=== PATIENT | male | born 1960 | race Caucasian/White ===

== ENCOUNTER 2017-01-23 21:56 | Inpatient (IN) ==
[2017-01-23] MEDS ORDERED: ALUM/MAG/SIMETH/LIDO VISC 1:1 30 ML BOTTLE PO STA (22:49)
[2017-01-23] MEDS ORDERED: ONDANSETRON 4 MG/2 ML VIAL IV STA (22:49)
[2017-01-23] MEDS ORDERED: MORPHINE 2 MG/1 ML SYRINGE IV STA (22:49)
[2017-01-23] MEDS ORDERED: NITROGLYCERIN 2% OINT 1 INCH/GM PACK TOP STA (22:49)
[2017-01-23] MEDS ORDERED: ASPIRIN 325 MG TABLET PO STA (22:49)
[2017-01-23 22:55] LABS: Basophils % 0.1 % (0.0-0.8); Eosinophils # 0.2 10*3/uL (0.0-0.87); Eosinophils % 2.9 % (0.00-10.9); Hematocrit 37.8 VOL% (42.0-52.0); Hemoglobin 13.9 GM/DL (14.0-18.0); Immature Granulocytes % 0.4 %; Immature Granulocytes Absolute 0.03 #; Lymphocytes # 2.4 10*3/uL (1.4-4.0); Lymphocytes % 29.6 % (21.2-54.2); Mean Corpuscular HGB Conc 36.8 GM/DL (32-36); Mean Corpuscular Hemoglobin 31 PG (27-34); Mean Corpuscular Volume 83.1 FL (87-102); Mean Platelet Volume 11.3 FL (9.6-12.0); Monocytes # 0.7 10*3/uL (0.11-0.8); Monocytes % 9.2 % (1.7-12.7); Neutrophils # 4.6 10*3/uL (1.4-7.4); Neutrophils % 57.8 % (38.7-73.9); Platelet Count 129 T/CUMM (130-400); Red Blood Count 4.55 MC/CUMM (3.8-5.5); Red Cell Distribution Width 12.2 % (9.3-17.3)
--- NOTE | 2017-01-23 23:01 | Emergency Department Note ---
IMargo Emily, am scribing for, and in the presence of, Florentino Christiansen MD 23: 00. IKuldip Charles R, MD, personally performed the services described in this documentation, ascribed by Destiny Aragon in my presence, and it is both accurate and complete . Arrival - Arrival Chief Complaint: Chest Pain Stated Complaint: chest pain ED Nursing Triage Note: pt presentedt to triage ambulatory with c/o L CP that radiates to L arm. Nitro sl x 3 taken [employer]ATT[employer]IE[employer] with some relief of pain. Now rates pain /10. Hx of CABG noted Mode of Arrival: Ambulatory Limitations: No Limitations Source: Patient Time Seen by Provider: 01/23/17 22:42 - History of Present Illness HPI Narrative: Pt is a 56 y/o male who came to ED with c/o left sided chest pain that radiates down left arm which started a little after 9pm when woke up from sleep tonight. Pt reports taking nitro earlier that has helped to ease the sharp, aching pain. He takes aspirin daily as well. Pt was experiencing diaphoresis, mild nausea, numbness from heart to left arm/fingertips, and SOB. Pt describes pain now in ED as pressure, "someone sitting on his chest and squeezing." PMHx of cardiac bypass under supervision of Dr. Welsh with stent back in ; HTN , HLD. He reports having chest pain periodically since surgery but nothing like the sxs tonight. Pt denies smoking. FMHx mom and dad with massive MIs. Onset (ago): hour(s) Consistency: constant Severity: moderate Severity scale (1-10): 6 Quality: aching, sharp Allergies/Adverse Reactions: Allergies Allergy/AdvReac Type Severity Reaction Status Date / Time No Known Allergies Allergy Verified 09/22/15 18:31 Home Medications: Home Medications Medication Instructions Recorded Confirmed Type Centrum Ultra Men's Tablet 1 tablet PO DAILY 11/18/14 09/22/15 History Clopidogrel 75 mg PO DAILY 11/18/14 09/22/15 History Lisinopril 40 mg PO DAILY 11/18/14 09/22/15 History Pramipexole 0.25 mg PO BEDTIME 11/18/14 09/22/15 History Simvastatin 40 mg PO BEDTIME 11/18/14 09/22/15 History Aspirin EC Tab 81 mg PO DAILY #30 tablet 11/19/14 09/22/15 Rx Pantoprazole Tab [Protonix Tab] 40 mg PO BID #60 tablet 11/19/14 09/22/15 Rx traMADol TAB [Ultram] 50 mg PO TID PRN #30 tablet 03/02/15 09/22/15 Rx Esomeprazole Magnesium [Nexium] 1 tablet PO DAILY 09/22/15 09/22/15 History Review of System - Review of System 12 point system: reviewed and no additional remarkable complaints except as stated - Review of System Constitutional: Present: diaphoresis. Absent: fever Respiratory: Present: respiratory distress (SOB). Absent: cough, wheezing Cardiovascular: Present: chest pain (left sided; radiating), syncope. Absent: edema Gastrointestinal: Present: nausea (mild). Absent: abdominal pain, vomiting Musculoskeletal: Present: arm pain (left arm). Absent: neck pain Skin: Absent: rash Neurological: Present: numbness (left arm). Absent: headache, confusion Medical,Surgical,& Family Hx - Medical History Cardio: History of: CAD, Hypertension HEENT: History of: Ear Problem Endocrine: History of: Dyslipidemia Gastrointestinal: History of: GERD - Surgical History Cardiac Surgeries: Sugical HX of: Cardiac Catheterization (STENT X'S 1), Cardiac Surgery (CARDIAC BYPASS 2010) Thoracic Surgeries: Patient denies;: Organ Transplant, Lobectomy HEENT Surgeries: Patient denies: Eye Surgery, Tonsilectomy & Adenoidectomy Abdominal Surgeries: Surgical HX of: Abdominal Surgery, Cholecystectomy Reproductive Surgeries: Patient denies;: Genitourinary Surgery Orthopedic Surgeries: Surgical HX of;: Orthopedic Surgery (rotator cuffs, right and left) - Family History Family History: Reports;: Family Heart Disease (MOTHER AND FATHER HAD MASSIVE ID 'S) Denies;: Family Anesthesia Reaction - Social History Smoking Status: Former smoker Frequency of Alcohol Use: None Type of Drug Use: None Exam Vital Signs: Vital Signs Temperature 99.4 F 01/23/17 22:06 Pulse Rate 95 H 01/23/17 22:06 Respiratory Rate 18 01/23/17 22:06 Blood Pressure 142/82 01/23/17 22:06 O2 Sat by Pulse Oximetry 95 01/23/17 22:06 - General General appearance: alert, in no apparent distress - Head Head exam: Present: atraumatic, normocephalic - Eye Eye exam: Present: PERRL, EOMI - ENT ENT exam: Present: mucous membranes moist. Absent: mucous membranes dry - Neck Neck exam: Present: full ROM. Absent: tenderness - Chest Chest inspection: Present: symmetric chest wall rise. Absent: tenderness - Respiratory Respiratory exam: Present: normal lung sounds bilaterally. Absent: respiratory distress - Cardiovascular Cardiovascular exam: Present: regular rate, normal rhythm, normal heart sounds - Abdominal Exam Abdominal exam: Present: soft, normal bowel sounds. Absent: tenderness - Extremities Exam Extremities exam: Present: full ROM. Absent: tenderness, pedal edema - Neurological Exam Neurological exam: Present: alert, oriented X3, CN II-XII intact. Absent: motor sensory deficit - Psychiatric Psychiatric exam: Present: normal affect, normal mood - Skin Skin exam: Present: warm, dry Course - Consultations Consultation #1: Dr. Hamilton will admit patient Time: 01:11 Results - Labs CBC & BMP: 01/23/17 22:19 01/23/17 22:19 Lab Results: I have reviewed the patients labs Labs: Laboratory Tests 01/23/17 22:19 WBC 8.0 RBC 4.55 Hgb 13.9 L Hct 37.8 L MCV 83.1 L MCHC 36.8 H Plt Count 129 L Laboratory Tests 01/23/17 01/23/17 22:19 22:19 D-Dimer, Quantitative <= 0.5 Magnesium 1.8 Lipase 143.0 Laboratory Tests 01/23/17 22:19 Sodium 134 L Potassium 3.0 L Chloride 101 Carbon Dioxide 24 Creatinine 0.90 Glucose 124 H Calculated Osmolality 269.2 L Laboratory Tests 01/23/17 22:19 B-Natriuretic Peptide 11 Disposition Clinical Impression: Chest pain, Unstable angina Case discussed with: patient Disposition: Still a Patient Condition: Stable Time of Disposition: 01:33
[2017-01-23 23:08] LABS: PT Patient Result 11.1 SECS
[2017-01-23] MEDS ORDERED: NITROGLYCERIN 2% OINT 1 INCH/GM PACK TOP ONE (23:10)
[2017-01-23] MEDS ORDERED: ONDANSETRON 4 MG/2 ML VIAL ONE (23:10)
[2017-01-23] MEDS ORDERED: MORPHINE 2 MG/1 ML SYRINGE ONE (23:11)
[2017-01-23] MEDS ORDERED: ALUM/MAG/SIMETH/LIDO VISC 1:1 30 ML BOTTLE PO ONE (23:11)
[2017-01-23] MEDS ORDERED: ASPIRIN 325 MG TABLET ONE (23:11)
[2017-01-23 23:20] LABS: Magnesium 1.8 MG/DL (1.8-2.4)
[2017-01-23 23:23] LABS: Albumin 4.1 G/DL (3.4-5.0); Bilirubin,Total 0.6 MG/DL (0.2-1.0); Osmolality,Calculated 269.2 MOS/KG (273-304); Total Protein 7.1 G/DL (6.4-8.3)
[2017-01-23] MEDS ORDERED: POTASSIUM CHLORIDE 20 MEQ TABLET PO STA (23:48)
[2017-01-24] MEDS ORDERED: POTASSIUM CHLORIDE 20 MEQ TABLET PO ONE (02:13)
[2017-01-24] MEDS ORDERED: MORPHINE 2 MG/1 ML SYRINGE IV PRN (02:22)
[2017-01-24] MEDS ORDERED: MAGNESIUM SULF RIDER 2 GM in PREMIX 1 EACH IV PRN ×2 (02:22→09:36)
[2017-01-24] MEDS ORDERED: MAGNESIUM SULF RIDER 4 GM in PREMIX 1 EACH IV PRN (02:22)
[2017-01-24] MEDS ORDERED: ONDANSETRON 4 MG/2 ML VIAL IV PRN (02:22)
[2017-01-24] MEDS ORDERED: SODIUM CHLORIDE 0.9% 1,000 ML IV SCH ×2 (02:22→13:30)
[2017-01-24 05:28] LABS: Basophils % 0.1 % (0.0-0.8); Eosinophils # 0.3 10*3/uL (0.0-0.87); Eosinophils % 4.6 % (0.00-10.9); Hematocrit 38.8 VOL% (42.0-52.0); Immature Granulocytes % 0.4 %; Immature Granulocytes Absolute 0.03 #; Lymphocytes # 1.9 10*3/uL (1.4-4.0); Lymphocytes % 27.6 % (21.2-54.2); Mean Corpuscular HGB Conc 36.1 GM/DL (32-36); Mean Corpuscular Hemoglobin 30 PG (27-34); Mean Corpuscular Volume 83.8 FL (87-102); Mean Platelet Volume 11.4 FL (9.6-12.0); Monocytes # 0.7 10*3/uL (0.11-0.8); Monocytes % 9.5 % (1.7-12.7); Neutrophils % 57.8 % (38.7-73.9); Platelet Count 136 T/CUMM (130-400); Red Blood Count 4.63 MC/CUMM (3.8-5.5); Red Cell Distribution Width 12.4 % (9.3-17.3)
[2017-01-24 06:03] LABS: Albumin 3.9 G/DL (3.4-5.0); Bilirubin,Total 0.6 MG/DL (0.2-1.0); Calcium 8.8 MG/DL (8.5-10.1); Magnesium 2.3 MG/DL (1.8-2.4); Osmolality,Calculated 273.8 MOS/KG (273-304); Potassium 3.8 MMOL/L (3.5-5.1); Risk Ratio 4.87; Total Protein 6.8 G/DL (6.4-8.3)
--- NOTE | 2017-01-24 06:21 | EKG Report ---
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
--- NOTE | 2017-01-24 06:21 | EKG Report ---
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
[2017-01-24] MEDS: NITROGLYCERIN 2% OINT 1 INCH/GM PACK TOP SCH ×4 (06:22→19:05)
--- NOTE | 2017-01-24 06:22 | EKG Report ---
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
--- NOTE | 2017-01-24 08:10 | XRay Report ---
History is chest pain Comparison 09/22/2015 The heart is enlarged with prior median sternotomy No congestive failure or confluent infiltrate is seen. Extrapleural fat laterally is similar on prior studies Impression: Cardiomegaly without overt congestive failure PROCEDURE INTERPRETED AT [facility] DEPARTMENT OF RADIOLOGY Final Report Signed by: Dr. Le Alvarez
[2017-01-24] MEDS ORDERED: SIMVASTATIN 40 MG TABLET PO SCH (09:00)
[2017-01-24] MEDS ORDERED: ENOXAPARIN 100 MG/ML SYRINGE SUBCUT SCH (09:00)
--- NOTE | 2017-01-24 09:15 | XRay Report ---
Exam: XR chest 2V Indication: Cardiomegaly Shortness of breath Comparison study: 01/23/2017 chest radiograph Findings: Cardiac silhouette is enlarged, similar to prior. Median sternotomy wiring is noted. Lungs are predominantly clear with minimal perihilar interstitial opacities, not significant change from prior, likely representing atelectasis and or scarring. There is no pneumothorax or pleural effusion identified. Impression: Mild cardiomegaly with minimal central perihilar interstitial prominence may represent scarring changes or atelectasis. Otherwise, no active disease. PROCEDURE INTERPRETED AT [facility] DEPARTMENT OF RADIOLOGY Final Report Signed by: Kobi Grigsby
--- NOTE | 2017-01-24 09:16 | Cardiology History & Physical ---
<Mary Saucedo - Last Filed: 01/24/17 08:27> Assessment and Plan - Time spent with patient Time spent with patient: Greater than 30 minutes (1) Chest pain Status: Acute Assessment and plan: SEE PLAN OF CARE LISTED BELOW Current Visit: Yes (2) Former smoker Status: Chronic Assessment and plan: SEE PLAN OF CARE LISTED BELOW Current Visit: Yes (3) Family history of early CAD Status: Chronic Assessment and plan: SEE PLAN OF CARE LISTED BELOW Current Visit: Yes (4) Coronary artery disease Status: Chronic Assessment and plan: SEE PLAN OF CARE LISTED BELOW Current Visit: Yes (5) Dyslipidemia Status: Chronic Assessment and plan: SEE PLAN OF CARE LISTED BELOW Current Visit: Yes (6) Essential hypertension Status: Chronic Assessment and plan: SEE PLAN OF CARE LISTED BELOW Current Visit: Yes (7) Gastroesophageal reflux disease with esophagitis Status: Chronic Assessment and plan: SEE PLAN OF CARE LISTED BELOW Current Visit: No (8) Status post coronary artery bypass graft Status: Chronic Assessment and plan: SEE PLAN OF CARE LISTED BELOW Current Visit: No History of Present Illness Chief complaint: Chest pain History of present illness: Compounding Pharmacy Technician: Dr. Sang Welsh Mr. Flynn is a 56 year old male with a known history of coronary artery disease, routinely followed by Dr. Sang Welsh. Patient has cardiac risk factors significant for known CAD, hypertension, dyslipidemia, former smoker, obesity and family history of coronary artery disease (father had ME at age 53 and mother from CHF at age 67). Patient had CABG in 2010 with FREDERICK to LAD, SVG to diagonal and ROMI to PDA. Patient's most recent heart catheterization was performed in [address] Sang Welsh. At that time, FREDERICK to LAD and ROMI to PDA were patent without evidence of significant stenosis. The diagonal graft was noted to be completely occluded. This was an old finding. Normal left ventricular size and function noted with EF estimated to be in the 60% range. 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 Patient's last stress test was performed February 2015 which did not reveal an evidence suggestive of reversible ischemia or scar. Patient reports that he has upcoming stress test in February of this year. His last echocardiogram was performed September 2013 which revealed normal LV function with EF estimated at 55%. No regional wall motion abnormalities noted. He was last seen in the cardiology clinic July 2016. At that time, no changes were made in his medication regimen. Patient presented to [facility] emergency department early this morning with complaints of left-sided chest pain. He reports that his pain began yesterday evening around 9 PM. This pain woke him up from his sleep and was very severe. He rates his pain a 9 out of 10. He first describes his pain as a pounding, sharp pain. Which then transitioned into a pressure, squeezing type pain. Describes it as "someone sitting on his chest." This radiated down his left arm. Reports that his arm and fingertips became numb at one point. Associated with shortness of breath, diaphoresis and heart racing. Denies nausea, vomiting, orthopnea and lower extremity swelling. While at home, he took 2 nitroglycerin which did significantly help his pain. However, this did not completely resolve it. Was not worsened with exertion. Unable to identify any specific aggravating factors. Reports that he has been having chest pain on and off for several months. However, last night he was concerned as his pain was a lot more severe. Therefore, he presented to the emergency department for further evaluation. When asked how this pain compares to whenever he underwent CABG 2010. He reports that his pain is just a little bit different as it is more severe than when he required CABG in 2010. He was admitted under cardiology's service and housed the telemetry unit. Of note, patient reports that he remains very active. He can perform his usual activities without experiencing chest pain, heaviness or tightness. He reports just last week, while at work, he declined a ladder to a silo without expecting chest pain, heaviness or tightness. Denies dyspnea on exertion and easy fatigability. Patient was seen and examined on the telemetry unit. Patient is currently without chest pain, heaviness or tightness. EKG does not reveal any acute ST changes. Cardiac biomarkers have been negative 3. D-dimer negative. Chest x- ray reveals cardiomegaly without overt congestive heart failure. BNP 11. Patient's last echocardiogram was performed 2013 which revealed normal LV function with EF estimated at 55%. Dr. Welsh plans to perform echocardiogram at his next office visit in February. For this reason, we will not order echocardiogram this hospitalization. Patient does have a significant cardiac history. Received therapeutic dose of Lovenox and full dose aspirin in the emergency department. Continue nitrates. Resume patient's home medications of Plavix and aspirin. At this point, I will keep patient n.p.o. and further discuss with Dr. Hamilton regarding further cardiac workup, invasive versus noninvasive. Will await his additional recommendations. ASSESSMENT/PLAN 1. CHEST PAIN - Patient is now without chest pain, heaviness or tightness. Cardiac biomarkers have been negative 3 and EKG did not reveal any acute ST changes. Patient does have a significant cardiac history. Received therapeutic dose of Lovenox and full dose aspirin in the emergency department. Continue nitrates. Resume patient's home medications of Plavix and aspirin. At this point, I will keep patient n.p.o. and further discuss with Dr. Hamilton regarding further cardiac workup, invasive versus noninvasive. Will await his additional recommendations. 2. HISTORY OF CAD, STATUS POST CABG 2010 - Patient has history of CAD and is status post CABG 2010 with FREDERICK to LAD, ROMI to PDA and SVG to diagonal. Patient's last echocardiogram was performed 2013 which revealed normal LV function with EF estimated at 55%. Dr. Welsh plans to perform echocardiogram at his next office visit in February. For this reason, we will not order echocardiogram this hospitalization. 3. HYPERTENSION - Under well control. Patient's home medications continued. Continue current plan of care. Will monitor blood pressure and adjust medications accordingly. 4. HYPERLIPIDEMIA - Lipid panel reviewed. LDL-113. Given patient's history of significant CAD I will change patient's statin to high intensity statin in order to achieve LDL goal of less than 75 5. FORMER SMOKER - Patient reports that he quit smoking in 1988. 6. FAMILY HISTORY OF CAD - Patient has family history of CAD. Father had ME at age 53 mother from CHF at age 67. Home Medications Medication Instructions Recorded Confirmed Type Centrum Ultra Men's Tablet 1 tablet PO DAILY 11/18/14 09/22/15 History Clopidogrel 75 mg PO DAILY 11/18/14 09/22/15 History Lisinopril 40 mg PO DAILY 11/18/14 09/22/15 History Pramipexole 0.25 mg PO BEDTIME 11/18/14 09/22/15 History Simvastatin 40 mg PO BEDTIME 11/18/14 09/22/15 History Aspirin EC Tab 81 mg PO DAILY #30 tablet 11/19/14 09/22/15 Rx Pantoprazole Tab [Protonix Tab] 40 mg PO BID #60 tablet 11/19/14 09/22/15 Rx traMADol TAB [Ultram] 50 mg PO TID PRN #30 tablet 03/02/15 09/22/15 Rx Esomeprazole Magnesium [Nexium] 1 tablet PO DAILY 09/22/15 09/22/15 History Allergies Allergy/AdvReac Type Severity Reaction Status Date / Time No Known Allergies Allergy Verified 09/22/15 18:31 - Constitutional Constitutional: Present: malaise. Absent: chills, fever(s), frequent falls, weakness, weight gain, weight loss - Cardiovascular Cardiovascular: Present: as per HPI, chest pain at rest, diaphoresis, dyspnea, radiating jaw, neck or arm pain, palpitations. Absent: chest pain with activity , claudication, dyspnea on exertion, edema, lightheadedness, orthopnea, PND - Respiratory Respiratory: Present: dyspnea. Absent: cough, hemoptysis, dyspnea on exertion, wheezing, snoring, pain on inspiration, change in phlegm color - Gastrointestinal Gastrointestinal: Absent: abdominal pain, change in bowel habits, coffee ground emesis, hematemesis, hematochezia, loose stools, melena, nausea, vomiting - Neurological Neurological: Present: numbness. Absent: abnormal gait, abnormal speech, behavioral changes, dizziness, syncope Medical,Surgical,& Family Hx - Medical History Cardio: History of: CAD, Hypertension HEENT: History of: Ear Problem Endocrine: History of: Dyslipidemia Gastrointestinal: History of: GERD - Surgical History Cardiac Surgeries: Sugical HX of: Cardiac Catheterization (STENT X'S 1), Cardiac Surgery (CARDIAC BYPASS 2010) Thoracic Surgeries: Patient denies;: Organ Transplant, Lobectomy HEENT Surgeries: Patient denies: Eye Surgery, Tonsilectomy & Adenoidectomy Abdominal Surgeries: Surgical HX of: Abdominal Surgery, Cholecystectomy Reproductive Surgeries: Patient denies;: Genitourinary Surgery Orthopedic Surgeries: Surgical HX of;: Orthopedic Surgery (rotator cuffs, right and left) - Family History Family History: Reports;: Family Heart Disease (MOTHER AND FATHER HAD MASSIVE ME 'S) Denies;: Family Anesthesia Reaction - Social History Smoking Status: Former smoker Frequency of Alcohol Use: None Type of Drug Use: None Functional capacity: independent ambulation Cardiology Physical Exam - Constitutional Vitals: Vital Signs Temp Pulse Resp BP Pulse Ox 98 F 53 L 20 125/72 98 01/24/17 07:30 01/24/17 07:30 01/24/17 07:30 01/24/17 07:30 01/24/17 07:30 Intake and Output 01/23/17 01/24/17 01/24/17 22:59 06:59 14:59 Output Total 500 / 500 Balance -500 / -500 Output: Urine 500 / 500 Other: Voiding Method Urinal Weight 235 lb 222 lb 8 oz Exam: General: Appears well with no apparent distress. Pleasant and cooperative. Appears comfortable. HEENT: PERRL, normocephalic, atraumatic. Mucous membranes moist. No jaundice noted. Conjunctiva moist and clear, sclerae anicteric Neck: No JVD/HJR, no thyromegaly or lymphadenopathy noted. No carotid bruit appreciated Cardiac: Regular rate and rhythm. No murmur rub or gallop. Lungs: Clear to auscultation without accessory muscle use to assist the respiratory pattern. Not requiring oxygen. Abdomen: Soft, bowel sounds normoactive. Nontender and nondistended. No abdominal bruit or thrill noted. No masses noted. Extremities: No clubbing, cyanosis noted. No edema noted. Upper extremity pulses 2+. Lower extremity pulses 2+. Capillary refill less than 3 seconds. Skin: No unusual lesions or rashes. No skin breakdown appreciated. Neuro: Awake, alert and oriented 3. Moves all extremities well without hemiparesis or paralysis. No essential tremor is appreciated. Result/EKG - Labs CBC & BMP: 01/24/17 04:58 01/24/17 04:58 Lab Results: I have reviewed the past 24 hour labs Labs: Laboratory Results - last 24 hr 01/23/17 01/23/17 01/23/17 22:19 22:19 22:19 WBC RBC Hgb Hct MCV MCH MCHC RDW Plt Count MPV Neut % (Auto) Lymph % (Auto) [place] % (Auto) Eos % (Auto) Baso % (Auto) Neut # (Auto) Lymph # (Auto) [place] # (Auto) Eos # (Auto) Baso # (Auto) Immature Gran % Nucleated RBC % Immature Gran # Nucleated RBCs # INR PT Patient/Control Mix D-Dimer, Quantitative <= 0.5 Sodium 134 L Potassium 3.0 L Chloride 101 Carbon Dioxide 24 Anion Gap 12.0 BUN 14 Creatinine 0.90 GFR Calculation 119 BUN/Creatinine Ratio 15.00 Glucose 124 H Calculated Osmolality 269.2 L Calcium 9.0 Magnesium Total Bilirubin 0.60 AST 28 ALT 37 Alkaline Phosphatase 79 Troponin I B-Natriuretic Peptide 11 Total Protein 7.1 Albumin 4.1 Globulin 3.0 Albumin/Globulin Ratio 1.3 Triglycerides Cholesterol LDL Cholesterol VLDL Cholesterol HDL Cholesterol Heart Disease Risk Ratio Lipase TSH 3rd Generation 01/23/17 01/23/17 01/23/17 22:19 22:19 22:19 WBC 8.0 RBC 4.55 Hgb 13.9 L Hct 37.8 L MCV 83.1 L MCH 31 MCHC 36.8 H RDW 12.2 Plt Count 129 L MPV 11.3 Neut % (Auto) 57.8 Lymph % (Auto) 29.6 [place] % (Auto) 9.2 Eos % (Auto) 2.9 Baso % (Auto) 0.1 Neut # (Auto) 4.6 Lymph # (Auto) 2.4 [place] # (Auto) 0.7 Eos # (Auto) 0.2 Baso # (Auto) 0.0 Immature Gran % 0.4 Nucleated RBC % 0.0 Immature Gran # 0.03 Nucleated RBCs # 0.00 INR 1.0 PT Patient/Control Mix 11.1 D-Dimer, Quantitative Sodium Potassium Chloride Carbon Dioxide Anion Gap BUN Creatinine GFR Calculation BUN/Creatinine Ratio Glucose Calculated Osmolality Calcium Magnesium Total Bilirubin AST ALT Alkaline Phosphatase Troponin I < 0.015 B-Natriuretic Peptide Total Protein Albumin Globulin Albumin/Globulin Ratio Triglycerides Cholesterol LDL Cholesterol VLDL Cholesterol HDL Cholesterol Heart Disease Risk Ratio Lipase TSH 3rd Generation 01/23/17 01/24/17 01/24/17 22:19 02:36 04:58 WBC RBC Hgb Hct MCV MCH MCHC RDW Plt Count MPV Neut % (Auto) Lymph % (Auto) [place] % (Auto) Eos % (Auto) Baso % (Auto) Neut # (Auto) Lymph # (Auto) [place] # (Auto) Eos # (Auto) Baso # (Auto) Immature Gran % Nucleated RBC % Immature Gran # Nucleated RBCs # INR PT Patient/Control Mix D-Dimer, Quantitative Sodium Potassium Chloride Carbon Dioxide Anion Gap BUN Creatinine GFR Calculation BUN/Creatinine Ratio Glucose Calculated Osmolality Calcium Magnesium 1.8 Total Bilirubin AST ALT Alkaline Phosphatase Troponin I 0.019 0.020 B-Natriuretic Peptide Total Protein Albumin Globulin Albumin/Globulin Ratio Triglycerides Cholesterol LDL Cholesterol VLDL Cholesterol HDL Cholesterol Heart Disease Risk Ratio Lipase 143.0 TSH 3rd Generation 01/24/17 01/24/17 01/24/17 04:58 04:58 04:58 WBC 7.0 RBC 4.63 Hgb 14.0 Hct 38.8 L MCV 83.8 L MCH 30 MCHC 36.1 H RDW 12.4 Plt Count 136 MPV 11.4 Neut % (Auto) 57.8 Lymph % (Auto) 27.6 [place] % (Auto) 9.5 Eos % (Auto) 4.6 Baso % (Auto) 0.1 Neut # (Auto) 4.0 Lymph # (Auto) 1.9 [place] # (Auto) 0.7 Eos # (Auto) 0.3 Baso # (Auto) 0.0 Immature Gran % 0.4 Nucleated RBC % 0.0 Immature Gran # 0.03 Nucleated RBCs # 0.00 INR PT Patient/Control Mix D-Dimer, Quantitative Sodium 137 Potassium 3.8 Chloride 104 Carbon Dioxide 26 Anion Gap 10.8 BUN 15 Creatinine 0.70 GFR Calculation 129 BUN/Creatinine Ratio 21.00 H Glucose 95 Calculated Osmolality 273.8 Calcium 8.8 Magnesium 2.3 Total Bilirubin 0.60 AST 24 ALT 38 Alkaline Phosphatase 80 Troponin I B-Natriuretic Peptide 17 Total Protein 6.8 Albumin 3.9 Globulin 2.9 Albumin/Globulin Ratio 1.3 Triglycerides 115 Cholesterol 185 LDL Cholesterol 113.0 VLDL Cholesterol 23.0 HDL Cholesterol 38 L Heart Disease Risk Ratio 4.87 Lipase TSH 3rd Generation 01/24/17 04:58 WBC RBC Hgb Hct MCV MCH MCHC RDW Plt Count MPV Neut % (Auto) Lymph % (Auto) [place] % (Auto) Eos % (Auto) Baso % (Auto) Neut # (Auto) Lymph # (Auto) [place] # (Auto) Eos # (Auto) Baso # (Auto) Immature Gran % Nucleated RBC % Immature Gran # Nucleated RBCs # INR PT Patient/Control Mix D-Dimer, Quantitative Sodium Potassium Chloride Carbon Dioxide Anion Gap BUN Creatinine GFR Calculation BUN/Creatinine Ratio Glucose Calculated Osmolality Calcium Magnesium Total Bilirubin AST ALT Alkaline Phosphatase Troponin I B-Natriuretic Peptide Total Protein Albumin Globulin Albumin/Globulin Ratio Triglycerides Cholesterol LDL Cholesterol VLDL Cholesterol HDL Cholesterol Heart Disease Risk Ratio Lipase TSH 3rd Generation 3.860 H <Kain Hamilton - Last Filed: 01/24/17 10:28> History of Present Illness History of present illness: Mr. Flynn is a 56 year old male Cardiology Physical Exam - Constitutional Vitals: Vital Signs Temp Pulse Resp BP Pulse Ox 98 F 53 L 20 125/72 98 01/24/17 07:30 01/24/17 07:30 01/24/17 07:30 01/24/17 07:30 01/24/17 07:30 Intake and Output 01/23/17 01/24/17 01/24/17 23:59 07:59 15:59 Output Total 500 / 500 Balance -500 / -500 Output: Urine 500 / 500 Other: Voiding Method Urinal Weight 106.594 kg 100.924 kg Patient Weight 01/24/17 23:59 Weight 100.924 kg Result/EKG - Labs CBC & BMP: 01/24/17 04:58 01/24/17 04:58 Labs: Laboratory Results - last 24 hr 01/23/17 01/23/17 01/23/17 22:19 22:19 22:19 WBC RBC Hgb Hct MCV MCH MCHC RDW Plt Count MPV Neut % (Auto) Lymph % (Auto) [place] % (Auto) Eos % (Auto) Baso % (Auto) Neut # (Auto) Lymph # (Auto) [place] # (Auto) Eos # (Auto) Baso # (Auto) Immature Gran % Nucleated RBC % Immature Gran # Nucleated RBCs # INR PT Patient/Control Mix D-Dimer, Quantitative <= 0.5 Sodium 134 L Potassium 3.0 L Chloride 101 Carbon Dioxide 24 Anion Gap 12.0 BUN 14 Creatinine 0.90 GFR Calculation 119 BUN/Creatinine Ratio 15.00 Glucose 124 H Calculated Osmolality 269.2 L Calcium 9.0 Magnesium Total Bilirubin 0.60 AST 28 ALT 37 Alkaline Phosphatase 79 Troponin I B-Natriuretic Peptide 11 Total Protein 7.1 Albumin 4.1 Globulin 3.0 Albumin/Globulin Ratio 1.3 Triglycerides Cholesterol LDL Cholesterol VLDL Cholesterol HDL Cholesterol Heart Disease Risk Ratio Lipase TSH 3rd Generation 01/23/17 01/23/17 01/23/17 22:19 22:19 22:19 WBC 8.0 RBC 4.55 Hgb 13.9 L Hct 37.8 L MCV 83.1 L MCH 31 MCHC 36.8 H RDW 12.2 Plt Count 129 L MPV 11.3 Neut % (Auto) 57.8 Lymph % (Auto) 29.6 [place] % (Auto) 9.2 Eos % (Auto) 2.9 Baso % (Auto) 0.1 Neut # (Auto) 4.6 Lymph # (Auto) 2.4 [place] # (Auto) 0.7 Eos # (Auto) 0.2 Baso # (Auto) 0.0 Immature Gran % 0.4 Nucleated RBC % 0.0 Immature Gran # 0.03 Nucleated RBCs # 0.00 INR 1.0 PT Patient/Control Mix 11.1 D-Dimer, Quantitative Sodium Potassium Chloride Carbon Dioxide Anion Gap BUN Creatinine GFR Calculation BUN/Creatinine Ratio Glucose Calculated Osmolality Calcium Magnesium Total Bilirubin AST ALT Alkaline Phosphatase Troponin I < 0.015 B-Natriuretic Peptide Total Protein Albumin Globulin Albumin/Globulin Ratio Triglycerides Cholesterol LDL Cholesterol VLDL Cholesterol HDL Cholesterol Heart Disease Risk Ratio Lipase TSH 3rd Generation 01/23/17 01/24/17 01/24/17 22:19 02:36 04:58 WBC RBC Hgb Hct MCV MCH MCHC RDW Plt Count MPV Neut % (Auto) Lymph % (Auto) [place] % (Auto) Eos % (Auto) Baso % (Auto) Neut # (Auto) Lymph # (Auto) [place] # (Auto) Eos # (Auto) Baso # (Auto) Immature Gran % Nucleated RBC % Immature Gran # Nucleated RBCs # INR PT Patient/Control Mix D-Dimer, Quantitative Sodium Potassium Chloride Carbon Dioxide Anion Gap BUN Creatinine GFR Calculation BUN/Creatinine Ratio Glucose Calculated Osmolality Calcium Magnesium 1.8 Total Bilirubin AST ALT Alkaline Phosphatase Troponin I 0.019 0.020 B-Natriuretic Peptide Total Protein Albumin Globulin Albumin/Globulin Ratio Triglycerides Cholesterol LDL Cholesterol VLDL Cholesterol HDL Cholesterol Heart Disease Risk Ratio Lipase 143.0 TSH 3rd Generation 01/24/17 01/24/17 01/24/17 04:58 04:58 04:58 WBC 7.0 RBC 4.63 Hgb 14.0 Hct 38.8 L MCV 83.8 L MCH 30 MCHC 36.1 H RDW 12.4 Plt Count 136 MPV 11.4 Neut % (Auto) 57.8 Lymph % (Auto) 27.6 [place] % (Auto) 9.5 Eos % (Auto) 4.6 Baso % (Auto) 0.1 Neut # (Auto) 4.0 Lymph # (Auto) 1.9 [place] # (Auto) 0.7 Eos # (Auto) 0.3 Baso # (Auto) 0.0 Immature Gran % 0.4 Nucleated RBC % 0.0 Immature Gran # 0.03 Nucleated RBCs # 0.00 INR PT Patient/Control Mix D-Dimer, Quantitative Sodium 137 Potassium 3.8 Chloride 104 Carbon Dioxide 26 Anion Gap 10.8 BUN 15 Creatinine 0.70 GFR Calculation 129 BUN/Creatinine Ratio 21.00 H Glucose 95 Calculated Osmolality 273.8 Calcium 8.8 Magnesium 2.3 Total Bilirubin 0.60 AST 24 ALT 38 Alkaline Phosphatase 80 Troponin I B-Natriuretic Peptide 17 Total Protein 6.8 Albumin 3.9 Globulin 2.9 Albumin/Globulin Ratio 1.3 Triglycerides 115 Cholesterol 185 LDL Cholesterol 113.0 VLDL Cholesterol 23.0 HDL Cholesterol 38 L Heart Disease Risk Ratio 4.87 Lipase TSH 3rd Generation 01/24/17 04:58 WBC RBC Hgb Hct MCV MCH MCHC RDW Plt Count MPV Neut % (Auto) Lymph % (Auto) [place] % (Auto) Eos % (Auto) Baso % (Auto) Neut # (Auto) Lymph # (Auto) [place] # (Auto) Eos # (Auto) Baso # (Auto) Immature Gran % Nucleated RBC % Immature Gran # Nucleated RBCs # INR PT Patient/Control Mix D-Dimer, Quantitative Sodium Potassium Chloride Carbon Dioxide Anion Gap BUN Creatinine GFR Calculation BUN/Creatinine Ratio Glucose Calculated Osmolality Calcium Magnesium Total Bilirubin AST ALT Alkaline Phosphatase Troponin I B-Natriuretic Peptide Total Protein Albumin Globulin Albumin/Globulin Ratio Triglycerides Cholesterol LDL Cholesterol VLDL Cholesterol HDL Cholesterol Heart Disease Risk Ratio Lipase TSH 3rd Generation 3.860 H
[2017-01-24] MEDS ORDERED: POTASSIUM CHLORIDE RIDER 10 MEQ in PREMIX 1 EACH IV PRN (09:36)
[2017-01-24] MEDS ORDERED: DIAZEPAM 5 MG TABLET PO ONE (09:36)
[2017-01-24] MEDS ORDERED: diphenhydrAMINE CAP 25 MG CAPSULE PO ONE (09:36)
[2017-01-24] MEDS ORDERED: LIDOCAINE 1% 20 ML VIAL ONE (10:38)
[2017-01-24] MEDS ORDERED: HEPARIN/NACL 0.9% 2 UNITS/ML 1,000 ML IV ONE ×2 (10:38)
[2017-01-24] MEDS ORDERED: diphenhydrAMINE CAP 50 MG CAPSULE ONE (11:38)
[2017-01-24] MEDS ORDERED: DIAZEPAM 5 MG TABLET ONE (11:38)
[2017-01-24] MEDS ORDERED: MIDAZOLAM 2 MG/2 ML VIAL ONE (11:59)
[2017-01-24] MEDS ORDERED: HYDROmorphone 2 MG/1 ML VIAL ONE (11:59)
[2017-01-24] MEDS ORDERED: BIVALIRUDIN 250 MG VIAL IV ONE (12:36)
[2017-01-24] MEDS ORDERED: CLOPIDOGREL 300 MG TABLET ONE (12:43)
--- NOTE | 2017-01-24 13:19 | Cardiac Catheterization ---
Date of Procedure:: 01/24/17 Procedure: CLINICAL SUMMARY: The patient had known multivessel coronary artery disease with previous bypass and stenting. He came in with recurrent anginal symptoms and is undergoing cardiac catheterization for definitive coronary assessment possible revascularization. PROCEDURES PERFORMED: 1. Right femoral percutaneous arteriotomy 2. Left heart catheterization. 3. Resting hemodynamics. 4. Left ventriculography. 5. Coronary arteriography. 6. Right femoral arteriogram. 7. Coronary artery bypass graft angiography. 8. Successful percutaneous coronary intervention to the ramus intermedius branch with a 2.25 x 12 mm Xience alpine drug-eluting stent. 9. Successful percutaneous coronary intervention to the second obtuse marginal branch with two 2.25 x 15 mm Xience alpine drug-eluting stents placed in overlapping fashion. 10. Angio-Seal closure of the right femoral artery. DESCRIPTION OF PROCEDURE: After obtaining informed consent, the patient was brought to the cardiac catheterization lab where the right groin was prepped and draped in the usual sterile manner. Using IV sedation, local anesthesia, and Modified Seldinger technique, a needle was placed in the right femoral artery and a sheath was positioned without difficulty. A left coronary catheter was advanced over a guidewire under fluoroscopic control to the ascending aorta where angiograms of the left coronary artery were undertaken in multiple views. After adequate angiograms, this catheter was withdrawn and a right coronary catheter was advanced over a guidewire under fluoroscopic control to the ascending aorta with angiograms of the RCA, saphenous vein graft , and left internal mammary artery were undertaken in numerous projections. We then used a PAULA catheter to engage the right internal mammary artery and performed angiography. We then proceeded directly to percutaneous coronary intervention on the left coronary system in the ramus intermedius and second obtuse marginal branches. We used a JL4 interventional guide and passed PT Graphix wire beyond the area of stenosis in the occipital ramus. This was stented with a 2.25 x 12 mm Xience alpine drug-eluting stent. An excellent angiographic result was achieved with no significant residual stenosis. We then pulled the wire back and advanced it down the circumflex coronary artery into the second obtuse marginal branch and placed a 2.25 x 15 mm Xience alpine drug-eluting stent in this location. Of note, the stent was occlusive before the appointment. Follow-up angiography showed some residual significant stenosis just proximal to the stent so a second 2.25 x 15 mm Xience alpine drug- eluting stent was placed just proximal to and overlapping with the first stent. An excellent angiographic result was achieved with no significant residual stenosis at the site of intervention. After adequate angiograms, this catheter was removed and a pigtail ventriculographic catheter was advanced over a guidewire under fluoroscopic control to the aortic valve and left ventricular pressures were measured. After adequate pressures were measured, this catheter was used to perform left ventriculography in the URIAS projection. This catheter was then withdrawn under hemodynamic monitoring and removed from the patient. A right femoral arteriogram was performed showing adequate sheath placement for closure device deployment. The sheath was then removed and an Angio-Seal device was used to obtain hemostasis. The patient was transferred back to the room having suffered no immediate complications. HEMODYNAMICS: See the accompanying data sheet. CORONARY ARTERIOGRAPHY: LEFT MAIN: The left main coronary artery is a large caliber vessel, which trifurcates into the left anterior descending, ramus intermedius, and left circumflex coronary arteries. The left main coronary artery has no significant obstructive disease. LEFT CIRCUMFLEX: The left circumflex coronary artery is a moderate-sized vessel which gives off a small first obtuse marginal and a small to moderate- sized second obtuse marginal. There is some diffuse luminal irregularities in the circumflex system. There is an area of stenosis of up to 70% in the proximal to mid segment of the second obtuse marginal. RAMUS INTERMEDIUS: This is a small to moderate size vessel which courses over the anterolateral wall. There is a stenosis of 75-80% in the proximal to midportion of the vessel. The remainder the vessel has mild luminal irregularities. LEFT ANTERIOR DESCENDING: The left anterior descending artery is a small to moderate sized vessel which is subtotaled in its mid segment. The distal vessel is seen filling via patent left internal mammary artery graft. RIGHT CORONARY ARTERY: The right coronary artery is severely diseased and subtotaled in its mid to distal segment. The distal vessel seen filling via a patent right internal mammary arterial graft. Saphenous vein graft to ramus intermedius: This graft is occluded at its origin. Right internal mammary artery to right coronary artery: This graft is widely patent throughout its course. Left internal mammary arterial graft to left anterior descending coronary artery : This graft is widely patent throughout its course. LEFT VENTRICULOGRAPHY: Left ventricular ejection fraction is estimated at approximately 55-60% with normal regional wall motion. PERIPHERAL ARTERIOGRAPHY: Right femoral arteriogram shows a normal right iliofemoral artery with adequate sheath placement for closure device deployment. IMPRESSIONS: 1. Severe robinson three-vessel coronary artery disease as described above. The right internal mammary arterial graft and left internal mammary arterial graft remain widely patent. The saphenous vein graft to the ramus intermedius is occluded. 2. Successful percutaneous coronary intervention to the proximal segment of the ramus intermedius with a 2.25 x 12 mm Xience alpine drug-eluting stent. 3. Successful percutaneous coronary intervention to the proximal to mid second obtuse marginal branch with two 2.25 x 15 mm Xience alpine drug-eluting stents placed in an overlapping fashion. 4. Preserved left ventricular systolic function as described above. PLAN: The patient was transferred back to his room for recovery. We will continue medical management and risk factor modification. If he does well overnight I would anticipate possible discharge home tomorrow. Anesthesia: minimal conscious sedation Surgeon / Physician: Misael Gastelum Estimated blood loss: minimal Condition: stable Disposition: floor - Medications / Follow-up
--- NOTE | 2017-01-24 13:41 | EKG Report ---
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
[2017-01-24] MEDS: LISINOPRIL 20 MG TABLET PO SCH (14:54)
[2017-01-24] MEDS: SODIUM CHLORIDE 0.45% 1,000 ML IV SCH (14:55)
[2017-01-24] MEDS: PANTOPRAZOLE 40 MG TABLET PO SCH (14:55)
[2017-01-24] MEDS: ASPIRIN EC 81 MG TABLET PO SCH (14:55)
[2017-01-24] MEDS: CLOPIDOGREL 75 MG TABLET PO SCH (14:55)
[2017-01-25 05:21] LABS: Basophils % 0.2 % (0.0-0.8); Eosinophils # 0.3 10*3/uL (0.0-0.87); Eosinophils % 2.8 % (0.00-10.9); Hematocrit 41.3 VOL% (42.0-52.0); Hemoglobin 14.4 GM/DL (14.0-18.0); Immature Granulocytes % 0.4 %; Immature Granulocytes Absolute 0.04 #; Lymphocytes # 1.4 10*3/uL (1.4-4.0); Lymphocytes % 15.1 % (21.2-54.2); Mean Corpuscular HGB Conc 34.9 GM/DL (32-36); Mean Corpuscular Hemoglobin 30 PG (27-34); Mean Platelet Volume 11.7 FL (9.6-12.0); Monocytes # 0.7 10*3/uL (0.11-0.8); Monocytes % 7.5 % (1.7-12.7); Platelet Count 143 T/CUMM (130-400); Red Blood Count 4.86 MC/CUMM (3.8-5.5); Red Cell Distribution Width 12.6 % (9.3-17.3); White Blood Count 9.5 T/CUMM (4-12)
[2017-01-25 06:36] LABS: Troponin I Only 0.112 NG/ML (0.00-0.045)
[2017-01-25] MEDS: NITROGLYCERIN 2% OINT 1 INCH/GM PACK TOP SCH ×2 (06:44→12:18)
[2017-01-25 06:58] LABS: Calcium 8.7 MG/DL (8.5-10.1); Magnesium 2.2 MG/DL (1.8-2.4)
--- NOTE | 2017-01-25 07:52 | EKG Report ---
Stationary ECG Study [facility] Test Date: 01/25/2017 7:53:23 AM Pat Name: TOO BURNETT Department: Room: 292 Gender: M [place] Operator: HALINA : 1960 Requested by: Mary Saucedo Order Number: [id number] Reading MD: ERASMO BOWLING Intervals [place] Rate: 55 P: 88 PA: 165 QRS: 73 QRSD: 106 T: 66 QT: 430 QTc: 418 Interpretive Statements SINUS RHYTHM at 55 bpm Mild NST Electronically Signed On 01-26-17 12:13:32 CDT by ERASMO BOWLING [email or web address]
[2017-01-25] MEDS: SODIUM CHLORIDE 0.45% 1,000 ML IV SCH ×2 (08:30→08:35)
[2017-01-25] MEDS: PANTOPRAZOLE 40 MG TABLET PO SCH (08:33)
[2017-01-25] MEDS: CLOPIDOGREL 75 MG TABLET PO SCH (08:33)
[2017-01-25] MEDS: LISINOPRIL 20 MG TABLET PO SCH (08:33)
[2017-01-25] MEDS: ASPIRIN EC 81 MG TABLET PO SCH (08:33)
[2017-01-25] MEDS ORDERED: METOPROLOL SUCCINATE XL 50 MG TABLET PO SCH (09:00)
[2017-01-25] MEDS ORDERED: ROSUVASTATIN 20 MG TABLET PO SCH (09:00)
--- NOTE | 2017-01-25 11:10 | Discharge Summary ---
Hospital Course - Hospital Course Hospital Course: [place] [facility]: Dr. Sang Welsh Mr. Flynn is a 56 year old male with a known history of coronary artery disease, routinely followed by Dr. Sang Welsh. Patient has cardiac risk factors significant for known CAD, hypertension, dyslipidemia, former smoker, obesity and family history of coronary artery disease (father had NV at age 53 and mother from CHF at age 67). Patient had CABG in 2010 with FREDERICK to LAD, SVG to diagonal and ROMI to PDA. Patient's most recent heart catheterization was performed in [address] Sang Welsh. At that time, FREDERICK to LAD and ROMI to PDA were patent without evidence of significant stenosis. The diagonal graft was noted to be completely occluded. This was an old finding. Normal left ventricular size and function noted with EF estimated to be in the 60% range. 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 Patient's last stress test was performed February 2015 which did not reveal an evidence suggestive of reversible ischemia or scar. Patient reports that he has upcoming stress test in February of this year. His last echocardiogram was performed September 2013 which revealed normal LV function with EF estimated at 55%. No regional wall motion abnormalities noted. He was last seen in the cardiology clinic July 2016. At that time, no changes were made in his medication regimen. Patient presented to [facility] yesterday morning with complaints of left-sided chest pain concerning for unstable angina. Cardiac biomarkers negative. No changes in EKG. Subsequently, he underwent heart catheterization per Dr. Misael Gastelum with the following impressions noted: IMPRESSIONS: 1. Severe redding three-vessel coronary artery disease as described above. The right internal mammary arterial graft and left internal mammary arterial graft remain widely patent. The saphenous vein graft to the ramus intermedius is occluded. 2. Successful percutaneous coronary intervention to the proximal segment of the ramus intermedius with a 2.25 x 12 mm Xience alpine drug-eluting stent. 3. Successful percutaneous coronary intervention to the proximal to mid second obtuse marginal branch with two 2.25 x 15 mm Xience alpine drug-eluting stents placed in an overlapping fashion. 4. Preserved left ventricular systolic function. EF 55-60%. Post heart catheterization patient was transferred back to the telemetry unit in stable condition. He has done well post procedure and has been without complications. He is without complaints of chest pain, heaviness and tightness. Right groin is soft without bleeding, hematoma and bruit. Distal pulses 2+. He has ambulated around the room and down the thao without difficulty. Right groin has remained stable post ambulation. Right groin precautions have been reviewed with the patient. He verbalized understanding. Reiterated the importance of compliance with dual antiplatelet therapy. Plavix and aspirin will be continued at discharge. Patient reports that he has a 90 day supply of both Plavix and aspirin at home. Blood pressure has been well controlled this hospitalization. Labs have been reviewed. Creatinine is stable post catheterization at 0.7. Lipid panel was obtained at this hospitalization. LDL-113. Given patient's history of significant CAD patient' s statin was changed to high intensity statin. Patient will need repeat lipid panel in approximately 6 weeks. Patient is anxious for discharge home. Having felt that he has not maximal medical therapy, he will be discharged home in stable condition. Patient has been given a follow-up appointment with Dr. Welsh in 1-2 weeks with CBC, BMP and EKG. Instructed patient that he is unable to return to work until cleared by Dr. Sang Welsh. Work excuse has been provided. Patient will be discharged home on his preadmission medications with the addition of Crestor 20 mg p.o. daily, Toprol 50 mg daily and lisinopril 40 mg daily. He was given a written prescription for lisinopril 40 mg daily as this medication would not E prescribe. Patient verbalized understanding of discharge instructions and discharge medications. - Time spent with patient Time with patient DS: Greater than 30 minutes Diagnosis - Discharge Diagnosis (1) Unstable angina Status: Resolved (2) Former smoker Status: Chronic (3) Family history of early CAD Status: Chronic (4) Coronary artery disease Status: Chronic (5) Dyslipidemia Status: Chronic (6) Essential hypertension Status: Chronic (7) Gastroesophageal reflux disease with esophagitis Status: Chronic (8) Status post coronary artery bypass graft Status: Chronic Specialty Discharge - Follow Up or Referrals Follow up with: Sang Welsh MD [Physician] - (Patient already has an appointment with Dr. Welsh on . Please add the following: CBC, BMP and EKG.) Discharge Plan - Discharge Data Disposition: Disch To Home/Self Care Condition at Discharge: Stable Discharge Diet: heart healthy, low fat, low cholesterol, low salt diet Activity: no lifting (No heavy lifting or squatting 1 week), other (Post cath expectations) Hygiene: may shower, other (Post cath expectations) Weight Bearing at Discharge: other (Post cath expectations) Driving: not until seen by doctor Contact your physician if you experience:: fever over 101, Difficulty voiding, Redness or swelling, Nausea/Vomiting, Shortness of breath, Bleeding, pain uncontrolled by pain medications - Discharge Medications New Metoprolol Succinate Xl [Toprol Xl] 50 mg PO DAILY #30 tablet Rosuvastatin [Crestor] 20 mg PO DAILY #30 tablet Continue Centrum Ultra Men's Tablet 1 tablet PO DAILY Pramipexole 0.25 mg PO BEDTIME Clopidogrel 75 mg PO DAILY Aspirin EC Tab 81 mg PO DAILY #30 tablet Pantoprazole Tab [Protonix Tab] 40 mg PO BID #60 tablet traMADol TAB [Ultram] 50 mg PO TID PRN #30 tablet PRN Reason: neck shoulder and chest pain Esomeprazole Magnesium [Nexium] 1 tablet PO DAILY Lisinopril 40 mg PO DAILY #30 Discontinued Simvastatin 40 mg PO BEDTIME - Follow Up or Referral Follow Up: Sang Welsh MD [Physician] - (Patient already has an appointment with Dr. Welsh on . Please add the following: CBC, BMP and EKG.) - Forms/Instructions Forms: Acute Care Work/School Release Instructions: Left Heart Catheterization (DC), Heart Healthy Diet (GEN), Coronary Intravascular Stent Placement (DC) Exam - Constitutional Vitals: Period Temp Pulse Resp BP Sys/Garg Pulse Ox Last 24 Hr 97.7 F-98.2 F 53-66 18-20 100-113/60-81 94-100 Exam: General: Appears well with no apparent distress. Pleasant and cooperative. Appears comfortable. HEENT: PERRL, normocephalic, atraumatic. Mucous membranes moist. No jaundice noted. Conjunctiva moist and clear, sclerae anicteric Neck: No JVD/HJR, no thyromegaly or lymphadenopathy noted. No carotid bruit appreciated Cardiac: Regular rate and rhythm. No murmur rub or gallop. Lungs: Clear to auscultation without accessory muscle use to assist the respiratory pattern. Not requiring oxygen. Abdomen: Soft, bowel sounds normoactive. Nontender and nondistended. No abdominal bruit or thrill noted. No masses noted. Extremities: No clubbing, cyanosis noted. No edema noted. Upper extremity pulses 2+. Lower extremity pulses 2+. Capillary refill less than 3 seconds. Right groin soft without bleeding, hematoma and bruit. Distal pulses 2+. Skin: No unusual lesions or rashes. No skin breakdown appreciated. Neuro: Awake, alert and oriented 3. Moves all extremities well without hemiparesis or paralysis. No essential tremor is appreciated. Discharge Results Procedures and tests throughout hospitalization: Pending Orders 01/26/17 04:00 BMP w/ Mg [Basic Metabolic Panel w/Mg] IN AM CBC [Comp Blood Count Auto Diff] IN AM Labs on day of discharge: Labs from last 24 hours 01/25/17 01/25/17 01/25/17 03:43 03:43 03:43 WBC 9.5 D RBC 4.86 Hgb 14.4 Hct 41.3 L MCV 85.0 L MCH 30 MCHC 34.9 RDW 12.6 Plt Count 143 MPV 11.7 Neut % (Auto) 74.0 H Lymph % (Auto) 15.1 L [place] % (Auto) 7.5 Eos % (Auto) 2.8 Baso % (Auto) 0.2 Neut # (Auto) 7.0 Lymph # (Auto) 1.4 [place] # (Auto) 0.7 Eos # (Auto) 0.3 Baso # (Auto) 0.0 Immature Gran % 0.4 Nucleated RBC % 0.0 Immature Gran # 0.04 Nucleated RBCs # 0.00 Sodium 136 Potassium 4.0 Chloride 104 Carbon Dioxide 21 Anion Gap 15.0 BUN 11 Creatinine 0.70 GFR Calculation 130 BUN/Creatinine Ratio 15.00 Glucose 86 Calculated Osmolality 269.0 L Calcium 8.7 Magnesium 2.2 Total Creatine Kinase 177 CK-MB (CK-2) 3.0 Troponin I 0.112 H D - Imaging and Cardiology Cardiology Procedure: report reviewed by me DS: Provider Date of admission: 01/24/17 01:33 Primary care physician: . No PCP Attending physician on admission: [place] Consults: 01/24/17 13:07 Consult to Cardiac Rehabilitation [CONS] Routine Reason for Cardiac Rehabilitation: Appt Out Pt Cardiac Rehab Discharging clinician: Mary Saucedo NP Expected date of discharge: 01/25/17
[2017-01-25 11:50] VITALS: BP 136/79
== END 2017-01-25 12:48 | disposition home or self-care (01) | DRG 247 ==
LOC: N.ED 21:56 → N.EDINP 01-24 01:33 → N.TELEN 01-24 02:01
PROVIDERS: ADMIT Internal Medicine Cardiovascular Disease; ATTEND Internal Medicine Cardiovascular Disease

== ENCOUNTER 2018-02-12 01:02 | Inpatient (IN) ==
[2018-02-12] MEDS ORDERED: MORPHINE 4 MG/1 ML VIAL IV STA (01:22)
[2018-02-12] MEDS ORDERED: NITROGLYCERIN 2% OINT 1 INCH/GM PACK TOP STA (01:22)
[2018-02-12] MEDS ORDERED: ASPIRIN 325 MG TABLET PO STA (01:22)
[2018-02-12] MEDS ORDERED: ALUM/MAG/SIMETH/LIDO VISC 1:1 30 ML BOTTLE PO STA (01:22)
[2018-02-12] MEDS ORDERED: METOPROLOL TARTRATE 25 MG TABLET PO STA (01:22)
[2018-02-12] MEDS ORDERED: ONDANSETRON 4 MG/2 ML VIAL IV STA (01:22)
[2018-02-12 01:38] LABS: Basophils % 0.4 % (0.0-0.8); Eosinophils # 0.5 10*3/uL (0.0-0.87); Eosinophils % 4.8 % (0.00-10.9); Hematocrit 42.6 VOL% (42.0-52.0); Hemoglobin 14.9 GM/DL (14.0-18.0); Immature Granulocytes % 0.2 %; Immature Granulocytes Absolute 0.02 #; Lymphocytes # 2.9 10*3/uL (1.4-4.0); Mean Corpuscular Hemoglobin 29 PG (27-34); Mean Corpuscular Volume 83.7 FL (87-102); Monocytes % 10.6 % (1.7-12.7); Platelet Count 160 T/CUMM (130-400); Red Blood Count 5.09 MC/CUMM (3.8-5.5); Red Cell Distribution Width 12.5 % (9.3-17.3); White Blood Count 9.4 T/CUMM (4-12)
[2018-02-12 01:48] LABS: PT Patient Result 10.7 SECS
[2018-02-12 02:13] LABS: Albumin 3.9 G/DL (3.4-5.0); Bilirubin,Total 0.4 MG/DL (0.2-1.0); Calcium 9.1 MG/DL (8.5-10.1); Potassium 3.4 MMOL/L (3.5-5.1); Total Protein 7.8 G/DL (6.4-8.3)
[2018-02-12] MEDS ORDERED: POTASSIUM CHLORIDE 20 MEQ TABLET PO STA (02:15)
[2018-02-12] MEDS ORDERED: ENOXAPARIN 100 MG/ML SYRINGE SUBCUT STA (02:16)
[2018-02-12] MEDS ORDERED: POTASSIUM CHLORIDE 20 MEQ TABLET PO PRN (03:23)
[2018-02-12] MEDS ORDERED: ONDANSETRON 4 MG/2 ML VIAL IV PRN (03:23)
[2018-02-12] MEDS ORDERED: MORPHINE 4 MG/1 ML VIAL IV PRN (03:23)
[2018-02-12] MEDS ORDERED: MAGNESIUM SULF RIDER 4 GM in PREMIX 1 EACH IV PRN (03:23)
[2018-02-12] MEDS ORDERED: MAGNESIUM SULF RIDER 2 GM in PREMIX 1 EACH IV PRN ×2 (03:23→10:02)
[2018-02-12] MEDS: SODIUM CHLORIDE 0.9% 1,000 ML IV SCH (03:44)
[2018-02-12 04:48] LABS: Basophils % 0.5 % (0.0-0.8); Eosinophils # 0.3 10*3/uL (0.0-0.87); Eosinophils % 3.7 % (0.00-10.9); Hematocrit 40.9 VOL% (42.0-52.0); Hemoglobin 14.4 GM/DL (14.0-18.0); Immature Granulocytes % 1.2 %; Lymphocytes # 2.1 10*3/uL (1.4-4.0); Lymphocytes % 25.4 % (21.2-54.2); Mean Corpuscular HGB Conc 35.2 GM/DL (32-36); Mean Corpuscular Hemoglobin 30 PG (27-34); Mean Platelet Volume 11.5 FL (9.6-12.0); Monocytes # 0.8 10*3/uL (0.11-0.8); Monocytes % 9.2 % (1.7-12.7); NRBC # 0.03 10*3/uL; Neutrophils # 4.9 10*3/uL (1.4-7.4); Platelet Count 167 T/CUMM (130-400); Red Blood Count 4.87 MC/CUMM (3.8-5.5); Red Cell Distribution Width 12.8 % (9.3-17.3); White Blood Count 8.1 T/CUMM (4-12)
[2018-02-12 05:17] LABS: Albumin 3.6 G/DL (3.4-5.0); Bilirubin,Total 0.6 MG/DL (0.2-1.0); Calcium 8.7 MG/DL (8.5-10.1); Osmolality,Calculated 267.2 MOS/KG (273-304); Potassium 4.3 MMOL/L (3.5-5.1); Risk Ratio 3.1; Thyroid Stimulating Hormone 3.63 uIU/ml (0.358-3.74); Total Protein 7.2 G/DL (6.4-8.3); VLDL CHOLESTEROL 17.4 MG/DL
[2018-02-12] MEDS: NITROGLYCERIN 2% OINT 1 INCH/GM PACK TOP SCH ×2 (05:47→12:35)
[2018-02-12] MEDS: PANTOPRAZOLE 40 MG TABLET PO SCH (08:57)
[2018-02-12] MEDS: ASPIRIN EC 325 MG TABLET PO SCH (08:58)
[2018-02-12] MEDS ORDERED: POTASSIUM CHLORIDE RIDER 10 MEQ in PREMIX 1 EACH IV PRN (10:02)
[2018-02-12] MEDS ORDERED: traMADol 50 MG TABLET PO PRN (10:57)
[2018-02-12] MEDS ORDERED: diphenhydrAMINE CAP 25 MG CAPSULE PO ONE (12:00)
[2018-02-12] MEDS: ROSUVASTATIN 20 MG TABLET PO SCH (12:00)
[2018-02-12] MEDS ORDERED: DIAZEPAM 5 MG TABLET PO ONE (12:00)
[2018-02-12] MEDS ORDERED: HEPARIN/NACL 0.9% 2 UNITS/ML 1,000 ML IV ONE (13:58)
[2018-02-12] MEDS ORDERED: LIDOCAINE 1%/EPI INJ 20 ML VIAL ONE (13:58)
[2018-02-12] MEDS ORDERED: MIDAZOLAM 2 MG/2 ML VIAL ONE (14:08)
[2018-02-12] MEDS ORDERED: fentaNYL 100 MCG/2 ML VIAL ONE (14:09)
[2018-02-12] MEDS ORDERED: ENOXAPARIN 120 MG/0.8 ML SYRINGE SUBCUT SCH (14:30)
[2018-02-13] MEDS: SODIUM CHLORIDE 0.9% 1,000 ML IV SCH ×2 (02:55→13:44)
[2018-02-13 05:27] LABS: Basophils % 0.4 % (0.0-0.8); Eosinophils # 0.3 10*3/uL (0.0-0.87); Eosinophils % 3.6 % (0.00-10.9); Hematocrit 40.5 VOL% (42.0-52.0); Hemoglobin 13.8 GM/DL (14.0-18.0); Immature Granulocytes % 0.4 %; Immature Granulocytes Absolute 0.03 #; Lymphocytes # 1.6 10*3/uL (1.4-4.0); Lymphocytes % 21.7 % (21.2-54.2); Mean Corpuscular HGB Conc 34.1 GM/DL (32-36); Mean Corpuscular Hemoglobin 30 PG (27-34); Mean Corpuscular Volume 86.9 FL (87-102); Mean Platelet Volume 11.3 FL (9.6-12.0); Monocytes # 0.7 10*3/uL (0.11-0.8); Monocytes % 8.6 % (1.7-12.7); Neutrophils # 4.9 10*3/uL (1.4-7.4); Neutrophils % 65.3 % (38.7-73.9); Platelet Count 122 T/CUMM (130-400); Red Blood Count 4.66 MC/CUMM (3.8-5.5); Red Cell Distribution Width 12.7 % (9.3-17.3); White Blood Count 7.6 T/CUMM (4-12)
[2018-02-13 05:53] LABS: Calcium 8.2 MG/DL (8.5-10.1); Osmolality,Calculated 275.7 MOS/KG (273-304); Potassium 4.1 MMOL/L (3.5-5.1)
[2018-02-13] MEDS ORDERED: PHENYLEPHRINE DRIP 40 MG/250 ML PREMIX IV ONE (08:14)
[2018-02-13] MEDS: ROSUVASTATIN 20 MG TABLET PO SCH (09:45)
[2018-02-13] MEDS: ASPIRIN EC 325 MG TABLET PO SCH (09:45)
[2018-02-13] MEDS: PANTOPRAZOLE 40 MG TABLET PO SCH (09:45)
[2018-02-13 12:03] VITALS: BP 135/78
== END 2018-02-13 12:25 | disposition home or self-care (01) | DRG 287 ==
LOC: N.ED 01:02 → N.EDINP 02:17 → N.ICU 02:53
PROVIDERS: ADMIT Internal Medicine Interventional Cardiology; ATTEND Internal Medicine Interventional Cardiology

== ENCOUNTER 2020-04-08 08:37 | Observation (INO) ==
[2020-04-08 08:58] LABS: Basophils % 0.4 % (0.0-0.8); Eosinophils # 0.4 10*3/uL (0.0-0.87); Eosinophils % 3.6 % (0.00-10.9); Hematocrit 42.8 VOL% (42.0-52.0); Hemoglobin 14.9 GM/DL (14.0-18.0); Immature Granulocytes % 0.5 %; Immature Granulocytes Absolute 0.06 #; Lymphocytes # 2.8 10*3/uL (1.4-4.0); Lymphocytes % 24.7 % (21.2-54.2); Mean Corpuscular HGB Conc 34.8 GM/DL (32-36); Mean Corpuscular Volume 88.2 FL (87-102); Mean Platelet Volume 10.5 FL (9.6-12.0); Monocytes % 7.8 % (1.7-12.7); Platelet Count 171 T/CUMM (130-400); Red Blood Count 4.85 MC/CUMM (3.8-5.5); Red Cell Distribution Width 12.1 % (9.3-17.3); White Blood Count 11.2 T/CUMM (4-12)
[2020-04-08] MEDS ORDERED: NITROGLYCERIN 2% OINT 1 INCH/GM PACK TOP STA (09:06)
[2020-04-08] MEDS ORDERED: ENOXAPARIN 120 MG/0.8 ML SYRINGE SUBCUT STA (09:06)
[2020-04-08] MEDS ORDERED: MORPHINE 4 MG/1 ML VIAL IV STA (09:06)
[2020-04-08] MEDS ORDERED: ONDANSETRON 4 MG/2 ML VIAL IV STA (09:12)
[2020-04-08] MEDS ORDERED: ONDANSETRON 4 MG/2 ML VIAL ONE (09:12)
[2020-04-08 09:20] LABS: Bilirubin,Total 0.6 MG/DL (0.2-1.0); Calcium 9.2 MG/DL (8.5-10.1); Osmolality,Calculated 268.2 MOS/KG (273-304); Total Protein 7.6 G/DL (6.4-8.3)
[2020-04-08] MEDS ORDERED: ACETAMINOPHEN 325 MG TABLET PO PRN (09:46)
[2020-04-08] MEDS ORDERED: ALUMINUM/MAGNES/SIMETH MAX STR 30 ML UDCUP PO PRN (09:46)
[2020-04-08] MEDS ORDERED: POTASSIUM CHLORIDE 20 MEQ TABLET PO PRN ×2 (09:46→09:49)
[2020-04-08] MEDS ORDERED: CALCIUM CARBONATE CHEW 500 MG TABLET PO PRN (09:46)
[2020-04-08] MEDS ORDERED: MAGNESIUM SULF RIDER 4 GM in PREMIX 1 EACH IV PRN (09:46)
[2020-04-08] MEDS ORDERED: MORPHINE 4 MG/1 ML VIAL IV PRN ×2 (09:46→09:49)
[2020-04-08] MEDS ORDERED: guaiFENesin/DM ER 600-30 MG TABLET PO PRN (09:46)
[2020-04-08] MEDS ORDERED: ZALEPLON 5 MG CAPSULE PO PRN (09:46)
[2020-04-08] MEDS ORDERED: ONDANSETRON 4 MG/2 ML VIAL IV PRN (09:46)
[2020-04-08] MEDS ORDERED: MAGNESIUM SULF RIDER 2 GM in PREMIX 1 EACH IV PRN ×2 (09:46→13:53)
[2020-04-08] MEDS ORDERED: diphenhydrAMINE CAP 25 MG CAPSULE PO PRN (09:46)
[2020-04-08] MEDS ORDERED: LACTULOSE 20 GM/30 ML UDCUP PO PRN (09:46)
[2020-04-08] MEDS ORDERED: BISACODYL 5 MG TABLET PO PRN (09:46)
[2020-04-08] MEDS ORDERED: SIMETHICONE CHEW 125 MG TABLET PO PRN (09:46)
[2020-04-08] MEDS: NITROGLYCERIN SL 0.4 MG TABLET SL PRN ×2 (09:49→09:57)
[2020-04-08] MEDS: SODIUM CHLORIDE 0.45% 1,000 ML IV SCH ×2 (11:26→21:03)
[2020-04-08] MEDS ORDERED: ALUM/MAG/SIMETH/LIDO VISC 1:1 30 ML BOTTLE PO ONE (13:30)
[2020-04-08] MEDS: NITROGLYCERIN 2% OINT 1 INCH/GM PACK TOP SCH ×2 (13:44→18:06)
[2020-04-08] MEDS ORDERED: diphenhydrAMINE CAP 25 MG CAPSULE PO ONE (13:53)
[2020-04-08] MEDS ORDERED: POTASSIUM CHLORIDE RIDER 10 MEQ in PREMIX 1 EACH IV PRN (13:53)
[2020-04-08] MEDS ORDERED: DIAZEPAM 5 MG TABLET PO ONE (13:53)
[2020-04-08] MEDS ORDERED: LIDOCAINE 1% 20 ML VIAL ONE (14:35)
[2020-04-08] MEDS ORDERED: HEPARIN/NACL 0.9% 2 UNITS/ML 1,000 ML IV ONE (14:35)
[2020-04-08] MEDS ORDERED: fentaNYL 100 MCG/2 ML VIAL ONE (14:51)
[2020-04-08] MEDS ORDERED: MIDAZOLAM 2 MG/2 ML VIAL ONE ×2 (14:51→15:11)
[2020-04-08] MEDS ORDERED: ASPIRIN EC 81 MG TABLET PO SCH (21:00)
[2020-04-08] MEDS ORDERED: MULTIVITAMIN (CENTRUM) TABLET PO SCH (21:00)
[2020-04-08] MEDS ORDERED: MULTIVITAMIN (BEROCCA) TABLET PO SCH (21:00)
[2020-04-08] MEDS ORDERED: METOPROLOL SUCCINATE XL 50 MG TABLET PO SCH (21:00)
[2020-04-08] MEDS ORDERED: PRAMIPEXOLE 0.25 MG TABLET PO SCH (21:00)
[2020-04-08] MEDS ORDERED: CITALOPRAM 40 MG TABLET PO SCH (21:00)
[2020-04-08] MEDS ORDERED: CLOPIDOGREL 75 MG TABLET PO SCH (21:00)
[2020-04-08] MEDS ORDERED: lisinopriL 20 MG TABLET PO SCH (21:00)
[2020-04-09] MEDS: NITROGLYCERIN 2% OINT 1 INCH/GM PACK TOP SCH ×3 (00:37→12:06)
[2020-04-09 05:28] LABS: Basophils % 0.1 % (0.0-0.8); Eosinophils # 0.2 10*3/uL (0.0-0.87); Eosinophils % 2.7 % (0.00-10.9); Hematocrit 37.3 VOL% (42.0-52.0); Hemoglobin 12.9 GM/DL (14.0-18.0); Immature Granulocytes % 0.4 %; Immature Granulocytes Absolute 0.03 #; Lymphocytes # 1.1 10*3/uL (1.4-4.0); Lymphocytes % 13.4 % (21.2-54.2); Mean Corpuscular HGB Conc 34.6 GM/DL (32-36); Mean Corpuscular Volume 90.3 FL (87-102); Mean Platelet Volume 11.2 FL (9.6-12.0); Monocytes % 9.4 % (1.7-12.7); Platelet Count 118 T/CUMM (130-400); Red Blood Count 4.13 MC/CUMM (3.8-5.5); Red Cell Distribution Width 12.3 % (9.3-17.3); White Blood Count 8.5 T/CUMM (4-12)
[2020-04-09 05:49] LABS: Blood Urea Nitrogen 11 MG/DL (7-18); Calcium 8.4 MG/DL (8.5-10.1); Estimated Glom Filtration Rate 128 ML/MIN; Glucose 107 MG/DL (74-106); HDL Cholesterol 34 MG/DL (40-60); Osmolality,Calculated 262.5 MOS/KG (273-304); Risk Ratio 3.62; Triglycerides 127 MG/DL (2-150); Troponin I < 0.015 NG/ML (0.00-0.045); VLDL CHOLESTEROL 25.4 MG/DL
[2020-04-09 06:07] LABS: Microcytosis Slight
[2020-04-09 06:08] LABS: Platelet Estimate Adequate
[2020-04-09] MEDS ORDERED: ENOXAPARIN 40 MG/0.4 ML SYRINGE SUBCUT SCH (09:00)
[2020-04-09] MEDS ORDERED: PANTOPRAZOLE 40 MG TABLET PO SCH (09:00)
[2020-04-09] MEDS: SODIUM CHLORIDE 0.45% 1,000 ML IV SCH ×2 (09:08→12:07)
[2020-04-09 11:40] VITALS: BP 116/65
== END 2020-04-09 12:50 | disposition home or self-care (01) ==
LOC: N.ED 08:37 → N.EDINP 09:49 → INTOOBSV 09:49 → N.TELEN 12:17
PROVIDERS: ADMIT Internal Medicine Cardiovascular Disease; ATTEND Internal Medicine Cardiovascular Disease

== ENCOUNTER 2020-07-10 19:01 | Observation (INO) ==
[2020-07-10 19:51] LABS: Basophils % 0.2 % (0.0-0.8); Eosinophils # 0.3 10*3/uL (0.0-0.87); Eosinophils % 3.2 % (0.00-10.9); Hematocrit 42.9 VOL% (42.0-52.0); Hemoglobin 15.1 GM/DL (14.0-18.0); Immature Granulocytes % 0.6 %; Immature Granulocytes Absolute 0.05 #; Lymphocytes # 3.1 10*3/uL (1.4-4.0); Mean Corpuscular HGB Conc 35.2 GM/DL (32-36); Mean Corpuscular Volume 87.7 FL (87-102); Mean Platelet Volume 10.8 FL (9.6-12.0); Monocytes # 0.6 10*3/uL (0.11-0.8); Monocytes % 6.8 % (1.7-12.7); Neutrophils % 54.2 % (38.7-73.9); Platelet Count 136 T/CUMM (130-400); Red Blood Count 4.89 MC/CUMM (3.8-5.5); Red Cell Distribution Width 12.3 % (9.3-17.3); White Blood Count 8.9 T/CUMM (4-12)
[2020-07-10 20:16] LABS: Albumin 3.8 G/DL (3.4-5.0); Bilirubin,Total 0.4 MG/DL (0.2-1.0); Calcium 8.8 MG/DL (8.5-10.1); Osmolality,Calculated 277.7 MOS/KG (273-304); Potassium 3.7 MMOL/L (3.5-5.1); Total Protein 7.3 G/DL (6.4-8.3)
[2020-07-10 21:51] LABS: Microcytosis 1+; Platelet Estimate Adequate
[2020-07-10] MEDS ORDERED: ALUM/MAG/SIMETH/LIDO VISC 1:1 30 ML BOTTLE PO STA (22:01)
[2020-07-10] MEDS ORDERED: MORPHINE 4 MG/1 ML VIAL IV STA (22:01)
[2020-07-10] MEDS ORDERED: ASPIRIN 325 MG TABLET PO STA (22:01)
[2020-07-10] MEDS ORDERED: NITROGLYCERIN 2% OINT 1 INCH/GM PACK TOP STA (22:01)
[2020-07-10] MEDS ORDERED: ONDANSETRON 4 MG/2 ML VIAL IV STA (22:01)
[2020-07-10] MEDS ORDERED: ENOXAPARIN 100 MG/ML SYRINGE SUBCUT STA (22:20)
[2020-07-10] MEDS ORDERED: ENOXAPARIN 120 MG/0.8 ML SYRINGE SUBCUT STA (22:23)
[2020-07-11] MEDS ORDERED: DEXTROSE 50% 25 GM/50 ML VIAL IV PRN (02:15)
[2020-07-11] MEDS ORDERED: ONDANSETRON 4 MG/2 ML VIAL IV PRN (02:15)
[2020-07-11] MEDS ORDERED: DOCUSATE SODIUM 100 MG CAPSULE PO PRN (02:15)
[2020-07-11] MEDS ORDERED: MORPHINE 4 MG/1 ML VIAL IV PRN (02:15)
[2020-07-11] MEDS ORDERED: ACETAMINOPHEN 325 MG TABLET PO PRN (02:15)
[2020-07-11] MEDS ORDERED: GLUCAGON 1 MG VIAL IM PRN (02:15)
[2020-07-11] MEDS ORDERED: NITROGLYCERIN SL 0.4 MG TABLET SL PRN (02:19)
[2020-07-11] MEDS ORDERED: DEXTROSE 50% 25 GM/50 ML SYRINGE IV PRN (02:41)
[2020-07-11 04:24] LABS: Basophils % 0.2 % (0.0-0.8); Eosinophils # 0.3 10*3/uL (0.0-0.87); Eosinophils % 2.8 % (0.00-10.9); Hematocrit 40.9 VOL% (42.0-52.0); Immature Granulocytes % 0.6 %; Immature Granulocytes Absolute 0.06 #; Lymphocytes # 2.3 10*3/uL (1.4-4.0); Lymphocytes % 22.6 % (21.2-54.2); Mean Corpuscular HGB Conc 34.2 GM/DL (32-36); Mean Corpuscular Volume 89.9 FL (87-102); Mean Platelet Volume 10.7 FL (9.6-12.0); Monocytes # 0.8 10*3/uL (0.11-0.8); Monocytes % 8.2 % (1.7-12.7); Neutrophils % 65.6 % (38.7-73.9); Platelet Count 150 T/CUMM (130-400); Red Blood Count 4.55 MC/CUMM (3.8-5.5); Red Cell Distribution Width 12.6 % (9.3-17.3)
[2020-07-11 05:02] LABS: Albumin 3.4 G/DL (3.4-5.0); Bilirubin,Total 0.6 MG/DL (0.2-1.0); Calcium 8.8 MG/DL (8.5-10.1); Osmolality,Calculated 276.7 MOS/KG (273-304); Potassium 4.3 MMOL/L (3.5-5.1); Risk Ratio 3.18; Thyroid Stimulating Hormone 7.86 uIU/ml (0.358-3.74); VLDL Cholesterol 30.6 MG/DL
[2020-07-11] MEDS: MULTIVITAMIN (CENTRUM) TABLET PO SCH (09:00)
[2020-07-11] MEDS: ENOXAPARIN 120 MG/0.8 ML SYRINGE SUBCUT SCH ×2 (10:00→21:56)
[2020-07-11 10:33] LABS: Troponin I 0.019 NG/ML (0.00-0.045)
[2020-07-11 17:03] LABS: Troponin I < 0.015 NG/ML (0.00-0.045)
[2020-07-11 20:09] LABS: Troponin I < 0.015 NG/ML (0.00-0.045)
[2020-07-11] MEDS ORDERED: lisinopriL 20 MG TABLET PO SCH (21:00)
[2020-07-11] MEDS ORDERED: CLOPIDOGREL 75 MG TABLET PO SCH (21:00)
[2020-07-11] MEDS ORDERED: MULTIVITAMIN (BEROCCA) TABLET PO SCH (21:00)
[2020-07-11] MEDS ORDERED: ASPIRIN EC 81 MG TABLET PO SCH (21:00)
[2020-07-11] MEDS ORDERED: PANTOPRAZOLE 40 MG TABLET PO SCH (21:00)
[2020-07-11] MEDS ORDERED: PRAMIPEXOLE 0.25 MG TABLET PO SCH (21:00)
[2020-07-11] MEDS ORDERED: ROSUVASTATIN 20 MG TABLET PO SCH (21:00)
[2020-07-11] MEDS ORDERED: METOPROLOL SUCCINATE XL 50 MG TABLET PO SCH (21:00)
[2020-07-12 04:53] LABS: Basophils % 0.5 % (0.0-0.8); Eosinophils # 0.2 10*3/uL (0.0-0.87); Eosinophils % 2.6 % (0.00-10.9); Hematocrit 41.2 VOL% (42.0-52.0); Hemoglobin 13.8 GM/DL (14.0-18.0); Immature Granulocytes % 0.4 %; Immature Granulocytes Absolute 0.03 #; Lymphocytes # 1.9 10*3/uL (1.4-4.0); Lymphocytes % 24.8 % (21.2-54.2); Mean Corpuscular HGB Conc 33.5 GM/DL (32-36); Mean Corpuscular Volume 90.9 FL (87-102); Mean Platelet Volume 10.9 FL (9.6-12.0); Monocytes # 0.7 10*3/uL (0.11-0.8); Monocytes % 9.4 % (1.7-12.7); Neutrophils % 62.3 % (38.7-73.9); Red Blood Count 4.53 MC/CUMM (3.8-5.5); Red Cell Distribution Width 12.5 % (9.3-17.3); White Blood Count 7.7 T/CUMM (4-12)
[2020-07-12 04:58] LABS: Platelet Count 115 T/CUMM (130-400)
[2020-07-12 05:15] LABS: Calcium 8.6 MG/DL (8.5-10.1); Osmolality,Calculated 278.7 MOS/KG (273-304); Potassium 4.2 MMOL/L (3.5-5.1)
[2020-07-12 05:18] LABS: Hypochromia Slight; Microcytosis Slight
[2020-07-12 05:46] LABS: Free T4 (Free Thyroxine) 0.97 NG/DL (0.76-1.46)
[2020-07-12 08:09] VITALS: BP 111/69
[2020-07-12] MEDS ORDERED: traMADol 50 MG TABLET PO PRN (08:26)
[2020-07-12] MEDS: MULTIVITAMIN (CENTRUM) TABLET PO SCH (08:48)
[2020-07-12 08:52] LABS: Albumin 3.3 G/DL (3.4-5.0); Bilirubin,Direct 0.13 MG/DL (0.0-0.20); Bilirubin,Indirect 0.4 MG/DL (0.0-1.0); Bilirubin,Total 0.5 MG/DL (0.2-1.0); Total Protein 7.1 G/DL (6.4-8.3)
[2020-07-12] MEDS ORDERED: BACLOFEN 10 MG TABLET PO SCH (09:00)
[2020-07-12] MEDS ORDERED: ISOSORBIDE MONONITRATE 30 MG TABLET PO SCH (09:00)
[2020-07-12] MEDS: ENOXAPARIN 120 MG/0.8 ML SYRINGE SUBCUT SCH (11:17)
== END 2020-07-12 11:26 | disposition home or self-care (01) ==
LOC: N.EDINP 19:01 → N.ED 19:01 → N.TELEN 07-11 14:57
PROVIDERS: ADMIT Internal Medicine Geriatric Medicine; ATTEND Internal Medicine Geriatric Medicine